=== PATIENT | male | born 1955 | race Caucasian/White ===

== ENCOUNTER 2016-06-09 10:47 | Emergency (ER) | payer BC ==
[~2016-06-09] VITALS: Ht 177.8 cm; Wt 110.0 kg
[~2016-06-09 10:47] MED LIST: ASPI81TA82 PO; LORA-392 PO; METO25 PO
[2016-06-09 10:50] VITALS: BP 146/89; PULSE 73; RESP 16; TEMP 98.6; O2SAT 96
[2016-06-09] MEDS ORDERED: SODIUM CHLOR 0.9% 1000 ML INJ 1,000 ML IV SCH (10:59)
[2016-06-09] MEDS ORDERED: ONDANSETRON HCL 4 MG/2 ML VIAL IVP ONE (11:00)
[2016-06-09] MEDS ORDERED: SODIUM CHLORIDE 0.9% FLUSH 5 ML FLUSH IVF PRN (11:00)
[2016-06-09] MEDS ORDERED: metroNIDAZOLE 500 MG INJ 100 ML IV ONE (11:00)
[2016-06-09] MEDS ORDERED: CIPROFLOXACIN 400 MG PREMIX 200 ML IV ONE (11:00)
[2016-06-09] MEDS ORDERED: MORPHINE SULFATE 4 MG/ML INJ IV PUSH ONE (11:00)
[2016-06-09] MEDS ORDERED: ASPI81CH7 CHEW (11:04)
[2016-06-09] MEDS ORDERED: METO25TA3 PO (11:04)
[2016-06-09 11:19] LABS: AUTOMATED NEUTROPHIL # 8.1 TH/MM3 (1.8-7.7); BASOPHIL # 0.1 TH/MM3 (0-0.2); BASOPHIL % 0.5 % (0.0-2.0); EOSINOPHIL # 0.1 TH/MM3 (0-0.4); EOSINOPHIL % 1.2 % (0.0-4.0); HEMATOCRIT 45.1 % (39.0-51.0); LYMPH % 21.1 % (9.0-44.0); LYMPHOCYTE # 2.5 TH/MM3 (1.0-4.8); MEAN CELL VOLUME 93.5 FL (80.0-100.0); MEAN CORPUSCULAR HEMOGLOBIN 31.5 PG (27.0-34.0); MEAN CORPUSCULAR HGB CONC 33.7 % (32.0-36.0); MONO % 8.8 % (0.0-8.0); NEUT % 68.4 % (16.0-70.0); PLATELET COUNT 289 TH/MM3 (150-450); RED BLOOD COUNT 4.82 MIL/MM3 (4.50-5.90); RED CELL DISTRIBUTION WIDTH 12.3 % (11.6-17.2); WHITE BLOOD COUNT 11.8 TH/MM3 (4.0-11.0)
[2016-06-09 11:21] LABS: HEMO FLAGS DIFF FINAL
--- NOTE | 2016-06-09 11:24 | PD ---
HPI . Left-sided abdominal pain Chief Complaint: GI Complaint Time Seen by Provider: 11:20 Travel History International Travel<30 days: No Contact w/Intl Traveler<30days: No Traveled to known affect area: No History of Present Illness HPI Patient presents with left-sided abdominal pain which started 2 days ago. It started after eating pizza for supper. He states the pain had been more of a diffuse upper and left-sided abdominal pain but he has subsequently had a good bowel movement and the diffuse upper abdominal pain has subsided. He has continued to have left-sided abdominal pain. He reports very mild nausea. No vomiting. No urinary tract symptoms. No fever. He does report a previous history of diverticulitis. [facility] Past Medical History Anxiety: Yes Cardiac Catheterization: Yes Diminished Hearing: No Diverticulitis: Yes Hypertension: Yes Medical other: Yes (C5-6 SPINAL SURGERY) Tetanus Vaccination: > 5 Years Influenza Vaccination: Yes Past Surgical History Genitourinary Surgery: Yes (VASECTOMY) Tonsillectomy: Yes Social History Alcohol Use: Yes (OCC) Tobacco Use: No Substance Use: No Allergies-Medications (Allergen,Severity, Reaction): Coded Allergies: Penicillin (Verified Allergy, Intermediate, RASH A CHILD, 06/09/16) Reported Meds & Prescriptions Reported Meds & Active Scripts Active Reported Metoprolol Tartrate 25 Mg Tab 25 Mg PO BID Aspirin Children's (Aspirin) 81 Mg Chew 81 Mg CHEW DAILY Review of Systems Except as stated in HPI: all other systems reviewed are Neg General / Constitutional: No: Fever, Chills Gastrointestinal: Positive: Nausea, Abdominal Pain, No: Vomiting, Diarrhea, Loss of Appetite Genitourinary: No: Urgency, Frequency, Dysuria Physical Exam Narrative GENERAL: Healthy-appearing man in no acute distress. SKIN: Warm and dry. HEAD: Atraumatic. Normocephalic. EYES: Pupils equal and round. ENT: No nasal bleeding or discharge. Mucous membranes pink and moist. NECK: Trachea midline. CARDIOVASCULAR: Regular rate and rhythm. Heart sounds are normal. RESPIRATORY: No accessory muscle use. Lungs are clear with full air movement throughout. GASTROINTESTINAL: Abdomen soft. Left sided tenderness. No guarding or rebound. Nondistended. MUSCULOSKELETAL: No obvious deformities. No edema. NEUROLOGICAL: Awake and alert. No obvious cranial nerve deficits. Motor grossly within normal limits. Normal speech. PSYCHIATRIC: Appropriate mood and affect; insight and judgment normal. Data Data Last Documented VS Vital Signs Date Time Temp Pulse Resp B/P Pulse Ox O2 Delivery O2 Flow Rate FiO2 06/09/16 10:50 98.6 73 16 146/89 96 Orders Basic Metabolic Panel (Bmp) (06/09/16 10:59) Complete Blood Count With Diff (06/09/16 10:59) Iv Access Insert/Monitor (06/09/16 10:59) Morphine Inj (Morphine Inj) (06/09/16 11:00) Ondansetron Inj (Zofran Inj) (06/09/16 11:00) Ciprofloxacin 400 Mg Premix (Cipro 400 M (06/09/16 11:00) Metronidazole 500 Mg Inj (Flagyl 500 Mg (06/09/16 11:00) Sodium Chlor 0.9% 1000 Ml Inj (Ns 1000 M (06/09/16 10:59) Sodium Chloride 0.9% Flush (Ns Flush) (06/09/16 11:00) Ct Abd/Pel W/O Iv Contrast (06/09/16 11:24) Labs Laboratory Tests Test 06/09/16 11:15 White Blood Count 11.8 TH/MM3 Red Blood Count 4.82 MIL/MM3 Hemoglobin 15.2 GM/DL Hematocrit 45.1 % Mean Corpuscular Volume 93.5 FL Mean Corpuscular Hemoglobin 31.5 PG Mean Corpuscular Hemoglobin 33.7 % Concent Red Cell Distribution Width 12.3 % Platelet Count 289 TH/MM3 Mean Platelet Volume 7.3 FL Neutrophils (%) (Auto) 68.4 % Lymphocytes (%) (Auto) 21.1 % Monocytes (%) (Auto) 8.8 % Eosinophils (%) (Auto) 1.2 % Basophils (%) (Auto) 0.5 % Neutrophils # (Auto) 8.1 TH/MM3 Lymphocytes # (Auto) 2.5 TH/MM3 Monocytes # (Auto) 1.0 TH/MM3 Eosinophils # (Auto) 0.1 TH/MM3 Basophils # (Auto) 0.1 TH/MM3 CBC Comment DIFF FINAL Differential Comment Sodium Level 138 MEQ/L Potassium Level 4.1 MEQ/L Chloride Level 103 MEQ/L Carbon Dioxide Level 26.1 MEQ/L Anion Gap 9 MEQ/L Blood Urea Nitrogen 13 MG/DL Creatinine 1.20 MG/DL Estimat Glomerular Filtration 61 ML/MIN Rate Random Glucose 113 MG/DL Calcium Level 8.7 MG/DL [facility] Medical Decision Making Medical Screen Exam Complete: Yes Emergency Medical Condition: Yes Medical Record Reviewed: Yes (patient has been seen here before for acute colitis. This was several years ago. Other medical history includes GERD, chronic low back pain, hypertension and hyperlipidemia.) Differential Diagnosis Differential diagnosis of abdominal pain includes but is not limited to gastritis, pancreatitis, hepatitis, gastroenteritis, gallbladder disease, constipation, urinary retention, UTI, peptic ulcer disease, diverticulitis or appendicitis Narrative Course Patient presents for evaluation of left-sided abdominal pain. I have empirically ordered IV Cipro and Flagyl pending his workup. CBC & BMP Diagram 06/09/16 11:15 Last Impressions Abdomen/Pelvis CT 06/09/16 1124 Signed Impressions: Service Date/Time: Thursday, June 09, 2016 11:38 - CONCLUSION: 1. Diverticulitis descending colon. 2. Numerous hepatic low densities many of which are too small to characterize. Followup study as an outpatient recommended. 3. Right renal cyst. Cyril Amato MD Diagnosis Primary Impression: Diverticulitis large intestine Qualified Code: K57.32 - Diverticulitis of large intestine without perforation or abscess without bleeding Patient Instructions: Diverticulitis (ED), General Instructions Additional Instructions: Make sure that you take a stool softener along with the pain medication to prevent constipation Med/Other Pt SpecificInfo: Prescription(s) given Scripts Hydrocodone-Acetaminophen (Rolla)5-325 mg Tab1 Tab PO Q4H PRN (PAIN) #10 TAB Ref 0 Prov:Aparna Duque MD 06/09/16 Metronidazole (Flagyl)500 Mg Oic874 Mg PO BID #14 TAB Ref 0 Prov:Aparna Duque MD 06/09/16 Ciprofloxacin (Cipro)500 Mg Oqr417 Mg PO BID #20 TAB Ref 0 Prov:Aparna Duque MD 06/09/16 Disposition: 01 DISCHARGE HOME Condition: Stable Aparna Duque MD Jun 09, 2016 11:24
[2016-06-09 11:26] LABS: POTASSIUM 4.1 MEQ/L (3.5-5.1)
[2016-06-09 11:29] LABS: BICARBONATE 26.1 MEQ/L (21.0-32.0)
--- NOTE | 2016-06-09 11:53 | RADHPO ---
EXAM DATE/TIME: 06/09/2016 11:38 [place] COMPARISON: No previous studies available for comparison. INDICATIONS : Left abdominal pain x 2 days. ORAL CONTRAST: No oral contrast ingested. RADIATION DOSE: 21.11 CTDIvol (mGy) MEDICAL HISTORY : Hypertension. Diverticulitis. SURGICAL HISTORY : None. ENCOUNTER: Initial ACUITY: 2 days PAIN SCALE: 8/10 LOCATION: Left abdomen TECHNIQUE: Volumetric scanning of the abdomen and pelvis was performed. Using automated exposure control and ad justment of the mA and/or kV according to patient size, radiation dose was kept as low as reasonably achievable to obtain optimal diagnostic quality images. FINDINGS: LOWER LUNGS: The visualized lower lungs are clear. LIVER: Homogeneous density without lesion. There is no dilation of the biliary tree. No calcified gallston es. Multiple low-density liver lesions. SPLEEN: Normal size without lesion. PANCREAS: Within normal limits. KIDNEYS: Normal in size and shape. There is no mass, stone, or hydronephrosis. Small 1.5 cm exophytic lower p ole right renal cyst. ADRENAL GLANDS: Within normal limits. VASCULAR: There is no aortic aneurysm. BOWEL/MESENTERY: Diverticulitis of the descending colon. No perforation or abscess. Normal appendix. There is no free intraperitoneal air or fluid. ABDOMINAL WALL: Within normal limits. RETROPERITONEUM: There is no lymphadenopathy. BLADDER: No wall thickening or mass. REPRODUCTIVE: Within normal limits. INGUINAL: There is no lymphadenopathy or hernia. MUSCULOSKELETAL: Within normal limits for patient age. CONCLUSION: 1. Diverticulitis descending colon. 2. Numerous hepatic low densities many of which are too small to characterize. Followup study as an o utpatient recommended. 3. Right renal cyst. Cyril Amato MD on June 09, 2016 at 11:49 Board Certified Radiologist. This report was verified electronically.
[2016-06-09] MEDS ORDERED: METR-1 PO (12:19)
[2016-06-09] MEDS ORDERED: NORC5TAB PO (12:19)
[2016-06-09] MEDS ORDERED: CIPR-9 PO (12:19)
[2016-06-09] MEDS ORDERED: BACT800T5 PO (12:53)
[2016-06-09 13:21] VITALS: BP 128/63; PULSE 67; RESP 16; O2SAT 96
[2016-07-04] MEDS ORDERED: METO25TA3 PO (11:30)
[2016-07-05] MEDS ORDERED: LISI-519 PO (15:45)
[2016-08-07] MEDS ORDERED: AZIT500T2 PO ×2 (10:16→10:23)
[2016-08-07] MEDS ORDERED: LORA-392 PO (10:24)
== END 2016-06-09 13:36 | disposition home or self-care (01) ==
LOC: PHED 10:47
DX: K57.32 Diverticulitis of large intestine without perforation or abscess without bleeding (principal); R11.0 Nausea; I10 Essential (primary) hypertension; Z86.79 Personal history of other diseases of the circulatory system; Z87.19 Personal history of other diseases of the digestive system; Z87.39 Personal history of other diseases of the musculoskeletal system and connective tissue; Z86.59 Personal history of other mental and behavioral disorders
CPT/HCPCS: 74176; 80048; 85025; 96365; 96375; 99284; J0744; J2270; J2405; J7030